=== PATIENT | male | born 1950 | race Caucasian/White ===

== ENCOUNTER 2016-10-27 07:48 | Emergency (ER) | payer MEDICARE, OTHER ==
[2016-10-27] MEDS ORDERED: KETOROLAC 30 MG/ML VIAL ONE (08:05)
[2016-10-27] MEDS ORDERED: MORPHINE 4 MG/ML SYR ONE (08:27)
[2016-10-27] MEDS ORDERED: SODIUM CHLORIDE 0.9% 1,000 ML ONE (08:27)
== END 2016-10-27 09:56 | disposition home or self-care (01) ==
LOC: ER 07:48
DX: N20.2 Calculus of kidney with calculus of ureter (principal); F17.210 Nicotine dependence, cigarettes, uncomplicated
CPT/HCPCS: 36415; 74176; 80053; 81001; 83690; 85025; 96361; 96374; 96375; 99284; J1885; J2270